=== PATIENT | female | born 1975 | race Two or more races ===

== ENCOUNTER 2016-04-07 14:27 | Inpatient (IN) | payer OTHER ==
[~2016-04-07] VITALS: Ht 160 cm; Wt 83.2 kg
[~2016-04-07 14:27] MED LIST: IRON325 M1 PO; Motrin PO; Prefera-OB Plus DHA PO
[2016-04-07 14:52] VITALS: BP 114/66
[2016-04-07 16:27] LABS: AMPHETAMINES QUANT VALUE 0 NG/ML; BARBITUATES QUANT VALUE 0 NG/ML; BENZODIAZEPINES QUANT VALUE 0 NG/ML; BENZODIAZEPINES, URINE SCREEN Negative (200 ng/mL); MARIJUANA QUANT VALUE 0 NG/ML; OPIATES QUANTITATIVE VALUE 0 NG/ML; PHENCYCLIDINE QUANT VALUE 0 NG/ML
[2016-04-07 16:35] VITALS: BP 127/67
[2016-04-07 19:11] VITALS: BP 108/67
[2016-04-07 19:45] LABS: MCH 21.4 PG (29.0-34.0); MCHC 29.4 G/DL (30.0-36.0); MCV 72.6 FL (83-99); MEAN PLAT.VOLUME 10.3 uM^3 (9.5-12.4); PLATELET COUNT 220 K/uL (156-360); RBC DIS.WIDTH-CV 17.3 % (11.8-14.6); RBC DIS.WIDTH-SD 45.8 % (39-53); RED BLOOD COUNT 4.82 M/uL (3.80-5.20); WHITE BLOOD COUNT 9.8 K/uL (4.1-10.2)
[2016-04-07 19:53] LABS: EOSINOPHIL (%) 0.3 % (0-5); IMMATURE GRANULOCYTE (%) 0.3 % (0.0-0.7); LYMPHOCYTE COUNT 1.8 K/uL (1.0-2.8); MONOCYTE (%) 4.6 % (3-12); MONOCYTE COUNT 0.5 K/uL (0-0.8); NEUTROPHIL (%) 76.6 % (45-76); NEUTROPHIL COUNT 7.5 K/uL (1.8-6.4)
[2016-04-07 19:59] LABS: Estimated Average Glucose 105 mg/dL (70-123); HEMOGLOBIN A1c (GLYCOHEMOGLOB) 5.3 % HGB (Below 5.7)
[2016-04-07 22:09] VITALS: BP 126/68
[2016-04-07 22:51] VITALS: BP 115/69
[2016-04-08] VITALS (18 sets, daily range): BP systolic 92–125; BP diastolic 54–88
[2016-04-09 08:14] VITALS: BP 110/65
[2016-04-09 11:34] LABS: HEMATOCRIT 32.2 % (36.0-46.0); MCH 22.2 PG (29.0-34.0); MCHC 30.1 G/DL (30.0-36.0); MCV 73.9 FL (83-99); MEAN PLAT.VOLUME 10.4 uM^3 (9.5-12.4); PLATELET COUNT 215 K/uL (156-360); RBC DIS.WIDTH-CV 17.4 % (11.8-14.6); RBC DIS.WIDTH-SD 47.2 % (39-53); RED BLOOD COUNT 4.36 M/uL (3.80-5.20); WHITE BLOOD COUNT 7.9 K/uL (4.1-10.2)
[2016-04-09 11:47] LABS: EOSINOPHIL (%) 0.9 % (0-5); EOSINOPHIL COUNT 0.1 K/uL (0-0.3); IMMATURE GRANULOCYTE (%) 0.8 % (0.0-0.7); IMMATURE GRANULOCYTE COUNT 0.1 K/uL; LYMPHOCYTE COUNT 2.1 K/uL (1.0-2.8); MONOCYTE (%) 2.8 % (3-12); MONOCYTE COUNT 0.2 K/uL (0-0.8); NEUTROPHIL (%) 68.9 % (45-76); NEUTROPHIL COUNT 5.5 K/uL (1.8-6.4)
[2016-04-09 15:40] VITALS: BP 117/67
[2016-04-09 23:18] VITALS: BP 113/74
[2016-04-10 07:52] VITALS: BP 118/61
[2016-04-10] MEDS ORDERED: IBUPROFEN800 MG PO (10:38)
[2016-04-10] MEDS ORDERED: FERROCITE324 MG PO (10:38)
[2016-04-10 14:29] VITALS: BP 118/68
== END 2016-04-10 19:08 | disposition home or self-care (01) | DRG 775 ==
LOC: LDRP-OP 14:27 → 2WEST 14:28 → LDRP-OP 05-14 19:44
PROVIDERS: Advanced Practice Midwife; Obstetrics & Gynecology
PROC: 10S0XZZ Reposition Products of Conception, External Approach (ICD-10-PCS; principal; 2016-04-07)
PROC: 3E033VJ Introduction of Other Hormone into Peripheral Vein, Percutaneous Approach (ICD-10-PCS; 2016-04-08)
PROC: 3E0S3CZ (ICD-10-PCS; 2016-04-08)
PROC: 00HU33Z Insertion of Infusion Device into Spinal Canal, Percutaneous Approach (ICD-10-PCS; 2016-04-08)
PROC: 10E0XZZ Delivery of Products of Conception, External Approach (ICD-10-PCS; 2016-04-08)
DX: O32.1XX0 Maternal care for breech presentation, not applicable or unspecified (principal); O41.03X0 Oligohydramnios, third trimester, not applicable or unspecified; D62 Acute posthemorrhagic anemia; O09.43 Supervision of pregnancy with grand multiparity, third trimester; O09.523 Supervision of elderly multigravida, third trimester; O09.33 Supervision of pregnancy with insufficient antenatal care, third trimester; O69.81X0 Labor and delivery complicated by cord around neck, without compression, not applicable or unspecified; O99.02 Anemia complicating childbirth; D50.9 Iron deficiency anemia, unspecified; Z3A.39 39 weeks gestation of pregnancy; Z37.0 Single live birth
CPT/HCPCS: 80306 90; 83036; 85025; 86850; 86900; 86901; C1755; G0378; J2795; J3010; J3105; J7120